=== PATIENT | female | born 1980 | race Caucasian/White ===

== ENCOUNTER 2018-11-02 10:46 | Emergency (ER) | payer MEDICAID, SELFPAY ==
[2018-11-02 10:48] VITALS: BP 136/83; PULSE 93; RESP 17; TEMP 36.8; O2SAT 98; BMI 34.9
--- NOTE | 2018-11-02 11:35 | ED.VIS.GEN ---
History of Present Illness Chief Complaint: Upper Extremity Injury Informant: Patient Onset: Yesterday Context: Gradual Onset Timing: Continuous Location: Left upper back and shoulder area Current Severity: Moderate Maximum Severity: Moderate Relieved by: Of motion Associated Symptoms: Chest pain or shortness of breath or exertional symptoms or paresthesia or Narrative: She developed left upper back pain yesterday that gradually radiated to the shoulder area. Increased pain with movement of her left arm. She is able to move her neck but does feel a pulling sensation to the upper back and neck muscles. She denies chest pain or shortness of breath or fever chills or obvious injury. Prior similar symptoms: No Recent Illness/Hospitalization: No Past Medical History - Allergies and Home Meds Allergies/Adverse Reactions: Allergies buprenorphine [From Subutex] Allergy (Verified 11/02/18 10:48) Shortness of breath duloxetine [From Cymbalta] Allergy (Verified 11/02/18 10:48) Other oxymorphone [From Opana] Allergy (Verified 11/02/18 10:48) Shortness of breath aspirin Adverse Reaction (Verified 11/02/18 10:48) Upset Stomach ferrous fumarate [From 1 + Iron] Adverse Reaction (Verified 11/02/18 10:48) Upset Stomach folic acid [From 1 + Iron] Adverse Reaction (Verified 11/02/18 10:48) Upset Stomach pregabalin [From Lyrica] Adverse Reaction (Verified 11/02/18 10:48) Upset Stomach vit,tx calc,iron,folic acd(less thn 1 mg) [From 1 + Iron] Adverse Reaction (Verified 11/02/18 10:48) Upset Stomach vitamins with calcium [From 1 + Iron] Adverse Reaction (Verified 11/02/18 10:48) Upset Stomach Primary Care Physician: [facility] Doctor,Out of [NON-STAFF] - Past Medical History: - - RSD Asthma IBS Seasonal allergies Anxiety and depression Surgical History: appendectomy, hysterectomy, - - Right ankle and bilateral feet. Bilateral tubal ligation. C-sections Lives: With Family Smoking Status: Former smoker Alcohol: Occasional Drugs: None Review of Systems General: Denies: Chills, Fever, Sweats Eyes: Denies: Visual changes - bilaterally, Diplopia ENT: Denies: Rhinorrhea, Sore throat Cardiovascular: Denies: Chest pain, Palpitations Respiratory: Denies: Dyspnea, Cough, Dyspnea on exertion Gastrointestinal: Denies: Abdominal pain, Nausea, Vomiting, Diarrhea, Melena, Hematochezia Genitourinary: Denies: Dysuria, Hematuria, Frequency Musculoskeletal: Reports: Extremity Pain, - - Left shoulder area upper back pain Skin: Denies: Rash, Wounds Neurological: Denies: Headache, Weakness, Parasthesia, Numbness Physical Exam Vital Signs/Narrative: Vital Signs Temp Pulse Resp BP Pulse Ox 11/02/18 10:48 98.3 F 93 17 136/83 H 98 Inital Vital Signs reviewed: Yes General: Well nourished, Well developed Head: Normocephalic, Atraumatic Eyes: Perrl, EOMI ENT: Moist mucous membranes, No rhinorrhea Neck: Supple, Nontender Cardiovascular: Regular rate, Regular rhythm, No murmurs Respiratory: No distress, CTA bilaterally, Chest nontender Abdomen: Soft, Nontender, Nondistended, Normal bowel sounds Back: Nontender, Normal Inspection Extremities: No edema, Tenderness - She has diffuse left upper back tenderness and shoulder area tenderness. No bony tenderness. There is no warmth or redness. MSP is intact. No skin inflammation noted. Skin: Normal color, No rash Neurological: Alert, Oriented x3, Cranial nerves II-XII grossly intact, Normal Strength, Normal Sensation Psychological: Normal affect, Normal Mood Diagnostic/Tx/Re-eval We discussed possibility of having a left shoulder x-ray. Through shared decision making it was not ordered as it will not change our course of treatment at this time. She does not have bony pain or history of injury. Her symptoms are not exertional or associated with cardiac symptoms. - Medical Decision Making Patient symptoms are consistent with a muscle strain. There is no skin inflammation or cardiac symptoms or bony pain or injury. She is neurovascularly intact. No obvious deformity on exam. Most of her tenderness is to the left upper back muscles. She will be given an injection of Toradol and Norflex and prescribed Flexeril for home. She has used Lidoderm patches in the past and they were not helpful for her leg. She is in pain management and currently takes OxyContin and oxycodone daily for RSD pain. She is comfortable with discharge plans. She remained hemostatically stable neurovascularly intact. She discharged in stable condition. ED Disposition - Plan for ED Patient: Disposition: Home or Assisted Living Instructions: Shoulder Sprain Prescriptions: cycloBENZAPRine HCl [Flexeril] 10 mg PO TID PRN #20 tab PRN Reason: Muscle Spasm Prescription Printed Referrals: [facility],Out of [NON-STAFF] - Additional Instructions: moist heat to area
[2018-11-02] MEDS: Orphenadrine 60 MG/2 ML Ampul IM (11:48)
[2018-11-02] MEDS: Ketorolac 30 MG/ML Syringe IM (11:48)
[2018-11-02 12:21] VITALS: BP 128/84; PULSE 78; RESP 18
== END 2018-11-02 12:22 | disposition home or self-care (01) ==
LOC: ED 11:56
PROVIDERS: Emergency Provider Nurse Practitioner
DX: S46.912A Strain of unspecified muscle, fascia and tendon at shoulder and upper arm level, left arm, initial encounter (principal); X58.XXXA Exposure to other specified factors, initial encounter; Y93.9 Activity, unspecified; Y92.9 Unspecified place or not applicable; Y99.9 Unspecified external cause status; K58.9 Irritable bowel syndrome, unspecified; J45.909 Unspecified asthma, uncomplicated; F32.9 Major depressive disorder, single episode, unspecified; F41.9 Anxiety disorder, unspecified; Z79.899 Other long term (current) drug therapy; Z88.5 Allergy status to narcotic agent; Z88.6 Allergy status to analgesic agent; Z88.8 Allergy status to other drugs, medicaments and biological substances; Z90.710 Acquired absence of both cervix and uterus; Z87.891 Personal history of nicotine dependence
CPT/HCPCS: 96372; 99283